=== PATIENT | male | born 1955 | race Caucasian/White ===

== ENCOUNTER 2019-01-21 15:01 | Emergency (ER) | payer SELFPAY ==
[2019-01-21 15:04] VITALS: BP 147/86; PULSE 81; RESP 18; TEMP 36.3; O2SAT 97; BMI 22.6
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
[2019-01-21] MEDS: Diphth,Pertuss(Acell),Tet Vac 0.5 ML Vial IM (15:36)
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
== END 2019-01-21 16:01 | disposition left against medical advice (07) ==
LOC: ED 15:17
PROVIDERS: Emergency Provider Emergency Medicine; Family Provider Family Medicine; PCP Family Medicine
DX: S40.012A Contusion of left shoulder, initial encounter (principal); S40.212A Abrasion of left shoulder, initial encounter; M79.605 Pain in left leg; Z53.21 Procedure and treatment not carried out due to patient leaving prior to being seen by health care provider; V89.2XXA Person injured in unspecified motor-vehicle accident, traffic, initial encounter; Y93.9 Activity, unspecified; Y92.9 Unspecified place or not applicable
CPT/HCPCS: 90471; 90715; 99284